=== PATIENT | female | born 1955 | race Caucasian/White ===

== ENCOUNTER → 2022-09-29 | Outpatient (CLI) | payer MEDICARE ==
--- NOTE | 2022-09-29 17:19 | CT ---
EXAMINATION TYPE: CT right knee - [facility] Protocol DATE OF EXAM: 09/29/2022 COMPARISON: None HISTORY: 67-year-old female Unilateral Primary osteoarthritis Right knee. CT DLP: 1566 mGycm. Automated exposure control for dose reduction was used. TECHNIQUE: Scanning of the right knee for surgical planning purposes. Additional imaging through the pelvis and ankles. Coronal and sagittal reconstructions performed. FINDINGS: There is posterior interbody lumbar fusion hardware. Previous left total knee arthroplasty. Imaging of pelvis shows bulky fibroid uterus. Moderate degenerative change of both hips. There is tricompartmental osteoarthrosis, severe in the medial and moderate to severe in the lateral compartments. There is thickening at the Achilles insertion with bony hypertrophy and bone fragments measuring up t o 1.3 cm suggesting sequela of old avulsion injury and tendinopathy. Plantar heel spur. IMPRESSION: Moderate to severe right knee osteoarthropathy. Imaging for surgical planning purposes. 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
== END | disposition home or self-care (01) ==
LOC: RADCTMAIN 14:10
PROVIDERS: ATTEND Orthopaedic Surgery
DX: M17.11 Unilateral primary osteoarthritis, right knee (principal); M25.562 Pain in left knee; Z96.652 Presence of left artificial knee joint

== ENCOUNTER → 2022-10-15 | Outpatient (CLI) | payer MEDICARE ==
[2022-10-15 13:08] LABS: Partial Thromboplastin Time 25.7 sec (22.0-30.0)
[2022-10-15 19:02] LABS: Prothrombin Time 10.4 sec (9.0-12.0)
[2022-10-15 20:20] LABS: HCT 47.6 % (37.2-46.3); HGB 15.2 g/dL (12.0-15.0); MCH 30.4 pg (27.0-32.0); MCHC 31.9 g/dL (32.0-37.0); MCV 95.2 fL (80.0-97.0); Mean Platelet Volume 11.5 fL (9.5-12.2); NRBC Per 100 WBC 0 /100 WBCS (0.0-0.0); Platelet Count 199 X 10*3/uL (140-440); WBC 9.96 X 10*3/uL (4.50-10.00)
[2022-10-15 20:22] LABS: African American GFR (CKD) 73.4 (60.0-200.0); Albumin 4.2 g/dL (3.8-4.9); Albumin/Globulin Ratio 1.22 (1.60-3.17); BUN/Creat Ratio 18.1 Ratio (12.00-20.00); Blood Urea Nitrogen 16.8 mg/dL (9.0-27.0); Carbon Dioxide 19.9 mmol/L (20.0-27.5); Globulin 3.4 g/dL (1.6-3.3); Non-African American GFR(CKD) 63.3 (60.0-200.0); Potassium 3.5 mmol/L (3.5-5.5); Total Bilirubin 0.3 mg/dL (0.30-1.20); Total Protein 7.5 g/dL (6.2-8.2)
[2022-10-15 21:39] LABS: Appearance,Urine Clear (Clear); Bilirubin,Urine Negative (Negative); Blood,Urine Negative (Negative); Color,Urine Yellow (Yellow); Ketones,Urine Negative (Negative); Nitrite,Urine Negative (Negative); Specific Gravity,Urine 1.009 (1.001-1.030); Urobilinogen,Urine 0.2 (0.2,1.0)
[2022-10-15 21:51] LABS: Bacteria,Urine None Seen /HPF (None Seen)
== END | disposition home or self-care (01) ==
LOC: LABPAT 11:42
PROVIDERS: ATTEND Orthopaedic Surgery
DX: Z01.812 Encounter for preprocedural laboratory examination (principal)
CPT/HCPCS: 80053; 81001; 85027; 85610; 85730; 87070

== ENCOUNTER → 2024-04-18 | Outpatient (CLI) | payer MEDICARE ==
[2024-04-18 14:20] VITALS: BP 137/80; PULSE 95; RESP 16
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
== END ==
LOC: PNWHC3 13:15
PROVIDERS: ATTEND Specialist
DX: M43.22 Fusion of spine, cervical region (principal); M43.26 Fusion of spine, lumbar region; M47.816 Spondylosis without myelopathy or radiculopathy, lumbar region
CPT/HCPCS: 99211

== ENCOUNTER → 2024-07-11 | Outpatient (CLI) | payer MEDICARE ==
[2024-07-11 13:41] VITALS: BP 146/100; PULSE 77; RESP 19; TEMP 98
--- NOTE | 2024-07-11 15:08 | P.PAINPG ---
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 Pt states pain level is provoked at 7 /10 in intensity, constant, localized in the thoracic spine, predominantly axial, achy in character w occasional shooting pain towards the shoulders. Pain is provoked by over activity. Pain is alleviated by PT x 6 wks which ended in Apr 2024, physician guided stretches daily since Apr 2024, medications , use of a cane for ambulatory assistance, topical, heat, ice, repositioning and rest . Interventional procedures include Medications include Tramadol, Tyl, Neurontin 300mg #90, Voltaren REVIEW OF ORGAN SYSTEMS: CONSTITUTIONAL: No fevers or chills. No recent weight loss. NEUROLOGICAL: + numbness and tingling along the distal extremities. No seizure disorders or headaches. MUSCULOSKELETAL: + pain PSYCHIATRIC: Denies current depression or suicidal thoughts. Physical Examinations : Constitutional : Cooperative , not in acute distress . Neurologic : Cranial nerve II to XII intact. No focal neurological deficits. Psychiatric : alert & oriented x 3. Matching mood & appropriate affect. Judgment & insight intact. Musculoskeletal : Cervical Spine Incisional Scars Intact Motor strength in the deltoid and biceps: Normal right side. Normal Left side Motor strength biceps and the wrist extensors: Normal right side . Normal left side Motor strength in the triceps muscle: Normal right side. Normal left side Deep tendon reflexes: Normal at the biceps. Normal at Brachioradialis. Normal at triceps Vertebral body tenderness to deep palpation over Cervical facet loading test: positive bilaterally Spurling test: positive bilaterally Neck distraction test: positive bilaterally Macey sign: positive bilaterally Lumbar spine +Vertical Incisional Scars intact Motor strength lower extremities ,thigh and legs 5/5 Right side , 5/5 Left side Deep tendon reflexes : Normal Knee Jerk. Normal Ankle Jerk Vertebral body tenderness over Leiva Test positive Lumbar facet Loading Test: positive Right / positive Left Range of motion of the lumbar spine Flexion 30 degrees, extension 10 degrees Straight Leg Raise test: Left/ Right positive at degrees Too test: positive right / positive left. Severe tenderness over the Sacroiliac joint on the Right / Left sides Gaenslen test: positive bilaterally Seated flexion test: positive bilaterally. Sacral spine : Severe tenderness over the Sacroiliac joint: right side / left side Range of motion: Flexion of the lumbar spine <60 degrees Range of motion: Extension of the lumbar spine <20 degrees Gaenslen's Test positive Too test: positive right side / left side Thigh Thrust Test Sacral Thrust Test Imaging: CT Cervical spine from 09/25/[address] Lumbar spine from 09/25/22 reviewed Assessment/ Plan : ACDF C5-C7, C2-C5 Instrumentation w Fusion, L2-L5 Fusion w Rods and Grafting, Thoracolumbar radiculopathy Recommendation of medication management. Neurontin 300mg #270 NR (90 day supply). Add Diclofenac gel 1 tube w 2 RF. Use, side effects, adverse reactions, safe storage discussed. All questions answered. I have spent greater than 30 minutes on patient care today. Dr Medellin was available by phone for the evaluation of this patient. The time was used to review the medical records including relevant urine studies and Prescription history (MAPs), review of the available imaging, evaluation and examination of the patient, coordination of care with the medical staff and if applicable referring physicians, as well as creation of the medical record - Pain Location Lower Back Non-Pharmacological Interventions: Position/Reposition PQRS Narrative: Narcotic Agreement Date Signed 07/11/24 Blood Pressure 146/100 Pain Intensity [Lower Back] 7 Scale Used Numeric (1 - 10) Hx Alcohol Use (MH) No Home Medications: Ambulatory Orders Atorvastatin Calcium 40 mg PO HS 11/04/22 Cephalexin [Keflex] 250 mg PO DAILY 11/04/22 Cetirizine HCl [Zyrtec] 10 mg PO DAILY 11/04/22 Magnesium 250 mg PO DAILY 11/04/22 Omeprazole 20 mg PO QAM 11/04/22 Spironolactone 25 mg PO DAILY 11/04/22 Topiramate [Topamax] 50 mg PO BID 11/04/22 Torsemide [Demadex] 20 mg PO DAILY 11/04/22 traZODone HCL 100 mg PO HS 11/04/22 Aspirin 81 mg PO BID 30 Days #60 tab 11/13/22 Diclofenac Sodium [Voltaren] 75 mg PO BID 30 Days #60 tab 11/13/22 Docusate [Colace] 100 mg PO BID #60 capsule 11/13/22 Doxycycline Monohydrate 100 mg PO BID 30 Days #60 cap 11/13/22 HYDROcodone/APAP 5-325MG [[place] 5-325] 1 - 2 tab PO Q6HR PRN 7 Days #32 tab 11/13/22 Omeprazole 40 mg PO DAILY 30 Days #30 cap 11/13/22 Artificial Tears-Hypromellose [Artificial Tear Drops] 2 drops BOTH EYES QID ml 11/14/22 Diclofenac Sodium Gel [Voltaren 1% Gel] 50 gm TOPICAL BID 30 Days #1 each 07/11/24 Gabapentin [Neurontin] 300 mg PO TID 90 Days #270 cap 07/11/24 Controlled Substance Measures - Controlled Substance Measures Is patient prescribed a controlled substance at discharge?: No
== END | disposition home or self-care (01) ==
LOC: PNWHC3 13:15
PROVIDERS: ATTEND Specialist
DX: M54.16 Radiculopathy, lumbar region
CPT/HCPCS: 99211

== ENCOUNTER → 2024-10-26 | Outpatient (CLI) | payer MEDICARE ==
[2024-10-26 12:53] VITALS: BP 144/84; PULSE 75; RESP 19; TEMP 97.7
--- NOTE | 2024-10-26 16:42 | P.PAINPG ---
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 Pt states pain level is provoked at 5 /10 in intensity, constant, localized in the thoracic spine, predominantly axial, sore in character w occasional shooting pain towards the upper back and neck. Pain is provoked by over activity. Pain is alleviated by PT x 6 wks which ended in Apr 2024, physician guided stretches daily since Apr 2024, medications , use of a cane for ambulatory assistance, topical, heat, ice, repositioning and rest . Interventional procedures include Medications include Tramadol, Tyl, Neurontin 300mg #90, Voltaren REVIEW OF ORGAN SYSTEMS: CONSTITUTIONAL: No fevers or chills. No recent weight loss. NEUROLOGICAL: + numbness and tingling along the distal extremities. No seizure disorders or headaches. MUSCULOSKELETAL: + pain PSYCHIATRIC: Denies current depression or suicidal thoughts. Physical Examinations : Constitutional : Cooperative , not in acute distress . Neurologic : Cranial nerve II to XII intact. No focal neurological deficits. Psychiatric : alert & oriented x 3. Matching mood & appropriate affect. Judgment & insight intact. Musculoskeletal : Cervical Spine Incisional Scars Intact Motor strength in the deltoid and biceps: Normal right side. Normal Left side Motor strength biceps and the wrist extensors: Normal right side . Normal left side Motor strength in the triceps muscle: Normal right side. Normal left side Deep tendon reflexes: Normal at the biceps. Normal at Brachioradialis. Normal at triceps Vertebral body tenderness to deep palpa tion over Cervical facet loading test: positive bilaterally Spurling test: positive bilaterally Neck distraction test: positive bilaterally Macey sign: positive bilaterally Lumbar spine +Vertical Incisional Scars intact Motor strength lower extremities ,thigh and legs 5/5 Right side , 5/5 Left side Deep tendon reflexes : Normal Knee Jerk. Normal Ankle Jerk Vertebral body tenderness over Leiva Test positive Lumbar facet Loading Test: positive Right / positive Left Range of motion of the lumbar spine Flexion 30 degrees, extension 10 degrees Straight Leg Raise test: Left/ Right positive at degrees Too test: positive right / positive left. Severe tenderness over the Sacroiliac joint on the Right / Left sides Gaenslen test: positive bilaterally Seated flexion test: positive bilaterally. Sacral spine : Severe tenderness over the Sacroiliac joint: right side / left side Range of motion: Flexion of the lumbar spine <60 degrees Range of motion: Extension of the lumbar spine <20 degrees Gaenslen's Test positive Too test: positive right side / left side Thigh Thrust Test Sacral Thrust Test Imaging: CT Cervical spine from 09/25/[address] Lumbar spine from 09/25/22 reviewed Assessment/ Plan : ACDF C5-C7, C2-C5 Instrumentation w Fusion, L2-L5 Fusion w Rods and Grafting, Thoracolumbar radiculopathy Recommendation of medication management. Neurontin 300mg #270 NR (90 day supply). Paper script for Diclofenac gel 1 tube w 2 RF as pt is having a hard time finding a pharmacy that carries it. Use, side effects, adverse reactions, safe storage discussed. All questions answered. I have spent greater than 30 minutes on patient care today. Dr Medellin was available by phone for the evaluation of this patient. The time was used to review the medical records including relevant urine studies and Prescription history (MAPs), review of the available imaging, evaluation and examination of the patient, coordination of care with the medical staff and if applicable referring physicians, as well as creation of the medical record PQRS Narrative: Narcotic Agreement Date Signed 07/11/24 Hx Alcohol Use (MH) No Home Medications: Ambulatory Orders Atorvastatin Calcium 40 mg PO HS 11/04/22 Cephalexin [Keflex] 250 mg PO DAILY 11/04/22 Cetirizine HCl [Zyrtec] 10 mg PO DAILY 11/04/22 Magnesium 250 mg PO DAILY 11/04/22 Omeprazole 20 mg PO QAM 11/04/22 Spironolactone 25 mg PO DAILY 11/04/22 Topiramate [Topamax] 50 mg PO BID 11/04/22 Torsemide [Demadex] 20 mg PO DAILY 11/04/22 traZODone HCL 100 mg PO HS 11/04/22 Aspirin 81 mg PO BID 30 Days #60 tab 11/13/22 Diclofenac Sodium [Voltaren] 75 mg PO BID 30 Days #60 tab 11/13/22 Docusate [Colace] 100 mg PO BID #60 capsule 11/13/22 Doxycycline Monohydrate 100 mg PO BID 30 Days #60 cap 11/13/22 HYDROcodone/APAP 5-325MG [[place] 5-325] 1 - 2 tab PO Q6HR PRN 7 Days #32 tab 11/13/22 Omeprazole 40 mg PO DAILY 30 Days #30 cap 11/13/22 Artificial Tears-Hypromellose [Artificial Tear Drops] 2 drops BOTH EYES QID ml 11/14/22 Gabapentin [Neurontin] 300 mg PO TID 90 Days #270 cap 07/11/24 Lidocaine 4% Cream [Lmx 4] 1 applic TOPICAL DAILY 30 Days #1 each 09/20/24 Gabapentin [Neurontin] 300 mg PO TID 30 Days #90 cap 10/06/24 Controlled Substance Measures - Controlled Substance Measures Is patient prescribed a controlled substance at discharge?: No
== END ==
LOC: PNWHC3 12:12
PROVIDERS: ATTEND Specialist
DX: M43.22 Fusion of spine, cervical region (principal); M43.26 Fusion of spine, lumbar region; M54.15 Radiculopathy, thoracolumbar region
CPT/HCPCS: 99211

== ENCOUNTER → 2025-01-18 | Outpatient (CLI) | payer MEDICARE ==
[2025-01-18 16:06] VITALS: BP 135/84; PULSE 64; RESP 19; TEMP 98.4
--- NOTE | 2025-01-18 19:08 | P.PAINPG ---
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 Pt states pain level is provoked at 6 /10 in intensity, constant, localized in the thoracic spine, predominantly axial, sore in character w occasional shooting pain towards the upper back and neck. Pain is provoked by over activity. Pain is alleviated by PT x 6 wks which ended in Apr 2024, physician guided stretches daily since Apr 2024, medications , use of a cane for ambulatory assistance, topical, heat, ice, repositioning and rest . Interventional procedures include Medications include Tramadol, Tyl, Neurontin 300mg #90, Voltaren REVIEW OF ORGAN SYSTEMS: CONSTITUTIONAL: No fevers or chills. No recent weight loss. NEUROLOGICAL: + numbness and tingling along the distal extremities. No seizure disorders or headaches. MUSCULOSKELETAL: + pain PSYCHIATRIC: Denies current depression or suicidal thoughts. Physical Examinations : Constitutional : Cooperative , not in acute distress . Neurologic : Cranial nerve II to XII intact. No focal neurological deficits. Psychiatric : alert & oriented x 3. Matching mood & appropriate affect. Judgment & insight intact. Musculoskeletal : Cervical Spine Incisional Scars Intact Motor strength in the deltoid and biceps: Normal right side. Normal Left side Motor strength biceps and the wrist extensors: Normal right side . Normal left side Motor strength in the triceps muscle: Normal right side. Normal left side Deep tendon reflexes: Normal at the b iceps. Normal at Brachioradialis. Normal at triceps Vertebral body tenderness to deep palpation over Cervical facet loading test: positive bilaterally Spurling test: positive bilaterally Neck distraction test: positive bilaterally Macey sign: positive bilaterally Lumbar spine +Vertical Incisional Scars intact Motor strength lower extremities ,thigh and legs 5/5 Right side , 5/5 Left side Deep tendon reflexes : Normal Knee Jerk. Normal Ankle Jerk Vertebral body tenderness over Leiva Test positive Lumbar facet Loading Test: positive Right / positive Left Range of motion of the lumbar spine Flexion 30 degrees, extension 10 degrees Straight Leg Raise test: Left/ Right positive at degrees Too test: positive right / positive left. Severe tenderness over the Sacroiliac joint on the Right / Left sides Gaenslen test: positive bilaterally Seated flexion test: positive bilaterally. Sacral spine : Severe tenderness over the Sacroiliac joint: right side / left side Range of motion: Flexion of the lumbar spine <60 degrees Range of motion: Extension of the lumba r spine <20 degrees Gaenslen's Test positive Too test: positive right side / left side Thigh Thrust Test Sacral Thrust Test Imaging: CT Cervical spine from 09/25/[address] Lumbar spine from 09/25/22 reviewed Assessment/ Plan : ACDF C5-C7, C2-C5 Instrumentation w Fusion, L2-L5 Fusion w Rods and Grafting, Thoracolumbar radiculopathy Recommendation of medication management. Neurontin 300mg #270 NR (90 day supply). Paper script for Diclofenac gel 1 tube w 2 RF as pt is having a hard time finding a pharmacy that carries it. Use, side effects, adverse reactions, safe storage discussed. All questions answered. I have spent greater than 30 minutes on patient care today. Dr Medellin was available by phone for the evaluation of this patient. The time was used to review the medical records including relevant urine studies and Prescription history (MAPs), review of the available imaging, evaluation and examination of the patient, coordination of care with the medical staff and if applicable referring physicians, as well as creation of the medical record PQRS Narrative: Narcotic Agreement Date Signed 07/11/24 Hx Alcohol Use (MH) No Home Medications: Ambulatory Orders Atorvastatin Calcium 40 mg PO HS 11/04/22 Cephalexin [Keflex] 250 mg PO DAILY 11/04/22 Cetirizine HCl [Zyrtec] 10 mg PO DAILY 11/04/22 Magnesium 250 mg PO DAILY 11/04/22 Omeprazole 20 mg PO QAM 11/04/22 Spironolactone 25 mg PO DAILY 11/04/22 Topiramate [Topamax] 50 mg PO BID 11/04/22 Torsemide [Demadex] 20 mg PO DAILY 11/04/22 traZODone HCL 100 mg PO HS 11/04/22 Aspirin 81 mg PO BID 30 Days #60 tab 11/13/22 Diclofenac Sodium [Voltaren] 75 mg PO BID 30 Days #60 tab 11/13/22 Docusate [Colace] 100 mg PO BID #60 capsule 11/13/22 Doxycycline Monohydrate 100 mg PO BID 30 Days #60 cap 11/13/22 HYDROcodone/APAP 5-325MG [[place] 5-325] 1 - 2 tab PO Q6HR PRN 7 Days #32 tab 11/13/22 Omeprazole 40 mg PO DAILY 30 Days #30 cap 11/13/22 Artificial Tears-Hypromellose [Artificial Tear Drops] 2 drops BOTH EYES QID ml 11/14/22 Lidocaine 4% Cream [Lmx 4] 1 applic TOPICAL DAILY 30 Days #1 each 09/20/24 Gabapentin [Neurontin] 300 mg PO TID 30 Days #90 cap 10/06/24 Gabapentin [Neurontin] 300 mg PO TID 90 Days #270 cap 10/26/24 Diclofenac Sodium Gel [Voltaren 1% Gel] 50 gm TOPICAL BID 30 Days #1 each 10/31/24 Controlled Substance Measures - Controlled Substance Measures Is patient prescribed a controlled substance at discharge?: No
== END ==
LOC: PNWHC3 12:22
PROVIDERS: ATTEND Specialist
DX: M47.25 Other spondylosis with radiculopathy, thoracolumbar region (principal); Z98.1 Arthrodesis status
CPT/HCPCS: 99212